=== PATIENT | male | born 1995 | race Caucasian/White ===

== ENCOUNTER 2017-06-17 15:19 | Emergency (ER) | payer OTHER ==
[2017-06-17] MEDS ORDERED: MORPHINE 4 MG/ML 1ML SYRINGE IV ONE (15:45)
[2017-06-17] MEDS ORDERED: NS 1,000 ML IV ONE (15:45)
[2017-06-17] MEDS ORDERED: ONDANSETRON 4MG/2ML VIAL (J2405) IV ONE (15:45)
[2017-06-17 16:11] LABS: BASO % 0.4 % (0.0-1.0); EOS # 0.1 K/mm3 (0.0-0.50); EOS % 0.8 % (0.0-3.0); LARGE UNSTAINED CELL # 0.2 K/mm3 (0.0-0.4); LARGE UNSTAINED CELL % 2.8 % (0.0-4.0); LYMPH # 1.6 K/mm3 (1.5-6.5); LYMPH % 16.5 % (24.0-44.0); MEAN CORPUSCULAR HEMOGLOBIN 30.9 pg (27.0-33.0); MEAN CORPUSCULAR HGB CONC 34.8 g/dl (32.0-36.5); MEAN CORPUSCULAR VOLUME 88.7 fl (80.0-96.0); MONO # 0.6 K/mm3 (0.0-0.8); MONO % 6.9 % (0.0-5.0); NEUTROPHILS % 72.7 % (36.0-66.0); PLATELET COUNT, AUTOMATED 175 k/mm3 (150-450); RED CELL DISTRIBUTION WIDTH 12.6 % (11.5-14.5); WHITE BLOOD COUNT 8.2 K/mm3 (4.0-10.0)
[2017-06-17 16:32] LABS: ANION GAP 7 MEQ/L (8-16); BLOOD UREA NITROGEN 17 MG/DL (7-18); CALCIUM LEVEL 9.2 MG/DL (8.5-10.1); CARBON DIOXIDE LEVEL 26 MEQ/L (21-32); CHLORIDE LEVEL 105 MEQ/L (98-107); CREATININE FOR GFR 0.93 MG/DL (0.70-1.30); GLOMERULAR FILTRATION RATE > 60.0 (>60); GLUCOSE, FASTING 77 MG/DL (70-105); SODIUM LEVEL 138 MEQ/L (136-145)
[2017-06-17] MEDS ORDERED: ISOVUE-370 76% 100ML VIAL (Q9967) As Ordered ONE (16:40)
--- NOTE | 2017-06-17 18:11 | REP ---
CT BRAIN WITHOUT IV CONTRAST: CT Brain is performed without IV contrast. There is no hydrocephalus. There is no midline shift or mass effect. No abnormal densities are seen. Christianson-white differentiation is well maintained. There is no acute hemorrhage or extra-axilla fluid collection. No skull fracture is seen. IMPRESSION: No evidence of acute intracranial hemorrhage or skull fracture. Signed by Heriberto Christianson MD 06/17/2017 08:19 P
--- NOTE | 2017-06-17 18:12 | REP ---
CT CERVICAL SPINE: CT cervical spine is performed in the axial plane with sagittal and coronal reconstruction images. There is no compression fracture or malalignment. There is no prevertebral soft-tissue swelling. Disc spaces are well preserved. No hematoma is seen in the spinal canal. IMPRESSION: No evidence of acute fracture or dislocation. Signed by Heriberto Christianson MD 06/17/2017 08:19 P
--- NOTE | 2017-06-17 18:14 | REP ---
CT CHEST WITH IV CONTRAST: TECHNIQUE: Axial contrast enhanced images from the thoracic inlet to the upper abdomen using 100 mL Isovue 370 intravenous contrast material with multiplanar reformations. Lungs are clear with no infiltrate or pneumothorax. There is no pleural or pericardial effusion. Heart is normal in size. There is no evidence of thoracic aortic aneurysm or dissection. No mediastinal, hilar, or chest wall lymphadenopathy is seen. I see no fracture of the visualized osseous structures. IMPRESSION: Negative CT chest with contrast. Signed by Heriberto Christianson MD 06/17/2017 08:19 P
--- NOTE | 2017-06-17 18:32 | REP ---
CT ABDOMEN AND PELVIS WITH IV CONTRAST: TECHNIQUE: Axial contrast enhanced images from the lung bases to the pubic symphysis using 100 mL Isovue 370 intravenous contrast material with multiplanar reformations. Liver, spleen, adrenals, pancreas, and kidneys are normal in appearance. There is no adenopathy, free air or free fluid. There is no abdominal aortic aneurysm. No bowel wall thickening is seen. Urinary bladder appears unremarkable. Visualized osseous structures appear intact, with no acute fracture. However there is spondylolysis of L5. IMPRESSION: Essentially negative CT abdomen and pelvis with no evidence of visceral organ injury, free air, or free fluid. There is spondylolysis of L5. Signed by Heriberto Christianson MD 06/17/2017 08:19 P
--- NOTE | 2017-06-17 18:34 | REP ---
CT MAXILLOFACIAL BONES: CT maxillofacial bones were performed in the axial plane with sagittal and coronal reconstruction images. There is no evidence of fracture of the visualized osseous structures. No air fluid levels are seen in the paranasal sinuses. There is mild mucosal thickening in the right ethmoid air cells. Lobes appear intact. Zygomatic arches are intact. IMPRESSION: No evidence of acute fracture of the maxillofacial bones. Signed by Heriberto Christianson MD 06/17/2017 08:19 P
--- NOTE | 2017-06-17 19:14 | REP ---
RIGHT HAND, FOUR VIEWS: There is no evidence of an acute fracture, dislocation or intrinsic bone disease. IMPRESSION: No fracture or dislocation. Signed by Heriberto Christianson MD 06/17/2017 08:20 P
--- NOTE | 2017-06-17 19:14 | REP ---
BILATERAL FEMURS, AP AND LATERAL: There is no evidence of an acute fracture, dislocation or intrinsic bone disease. IMPRESSION: No fracture or dislocation. Signed by Heriberto Christianson MD 06/17/2017 08:20 P
[2017-06-17] MEDS ORDERED: PERC5TAB12 PO (19:25)
[2017-06-17] MEDS ORDERED: ZANA4TAB PO (19:25)
[2017-06-17 19:39] VITALS: BP 155/86
== END 2017-06-17 19:40 | disposition home or self-care (01) ==
LOC: M ED 15:19
DX: S01.21XA Laceration without foreign body of nose, initial encounter (principal); S20.219A Contusion of unspecified front wall of thorax, initial encounter; S01.512A Laceration without foreign body of oral cavity, initial encounter; S70.01XA Contusion of right hip, initial encounter; S70.11XA Contusion of right thigh, initial encounter; V49.60XA Unspecified car occupant injured in collision with unspecified motor vehicles in traffic accident, initial encounter; Y92.410 Unspecified street and highway as the place of occurrence of the external cause; Y93.9 Activity, unspecified; Y99.8 Other external cause status; M43.06 Spondylolysis, lumbar region; F17.200 Nicotine dependence, unspecified, uncomplicated
CPT/HCPCS: 36415; 70450; 70486; 71260; 72125; 73130; 73552; 74177; 80048; 85025; 96374; 96375; 99284; J2405; Q9967